=== PATIENT | female | born 1945 | race American Indian/Alaskan Native ===

== ENCOUNTER 2017-06-02 08:55 | Observation (INO) | payer MEDICARE, OTHER ==
--- NOTE | 2017-06-02 09:33 | ED PDOC ---
Arrival/HPI - General Chief Complaint: Abdominal Pain Time Seen by Provider: 06/02/17 09:17 Historian: Patient - History of Present Illness Narrative History of Present Illness (Text): 06/02/17 09:27 71yo female with PMhx of Diabetes, hypothyroid, hypertension, hyperlipdemia present with complaint of severe right flank pain with associated nausea x 4days. Pain is not relieved/exacerbated by anything. She did not take any medication for the pain. States she was 3weeks ago, when she saw her Urologist that she have urinary tract infection, but wasn't given any medication. She report history of kidney stones in 2008 and had Lithotripsy. She still sees the Urologist and have another appointment to follow up on her test next week. Denies vomiting, diarrhea, fever, chills, back pain, melena, hematemesis, chest pain, SOB, any other complaint. Past Medical History - Provider Review Nursing Documentation Reviewed: Yes - Cardiac Hx Cardiac Disorders: Yes Hx Hypertension: Yes - Pulmonary Hx Respiratory Disorders: No - Neurological Hx Neurological Disorder: No - HEENT Hx HEENT Disorder: No - Renal Hx Renal Disorder: Yes Hx Kidney Stones: Yes - Endocrine/Metabolic Hx Endocrine Disorders: Yes Hx Diabetes Mellitus Type 2: Yes Hx Hypothyroidism: Yes - Hematological/Oncological Hx Blood Disorders: No - Integumentary Hx Dermatological Disorder: No - Musculoskeletal/Rheumatological Hx Musculoskeletal Disorders: No - Gastrointestinal Hx Gastrointestinal Disorders: No - Genitourinary/Gynecological Hx Genitourinary Disorders: Yes Hx Urinary Tract Infection: Yes - Psychiatric Hx Psychophysiologic Disorder: No Hx Substance Use: No - Surgical History Hx Appendectomy: Yes - Anesthesia Hx Anesthesia Reactions: No Hx Malignant Hyperthermia: No - Suicidal Assessment Feels Threatened In Home Enviroment: No Family/Social History - Physician Review Nursing Documentation Reviewed: Yes Family/Social History: Unknown Family HX Smoking Status: Former Smoker Hx Alcohol Use: No Hx Substance Use: No Allergies/Home Meds Allergies/Adverse Reactions: Allergies No Known Allergies Allergy (Verified 06/02/17 09:08) Home Medications: Home Meds Medication Instructions Recorded Confirmed Glimepiride [Glimepiride] 2 mg PO DAILY 06/20/14 06/02/17 Levothyroxine Sodium [Synthroid] 50 mcg PO DAILY 06/20/14 06/20/14 Lisinopril 20 mg PO DAILY 06/20/14 06/02/17 Simvastatin 40 mg PO HS 06/20/14 06/02/17 Sitagliptin Phosphate [Januvia] 100 mg PO DAILY 06/20/14 06/02/17 amLODIPine [Norvasc] 5 mg PO DAILY 06/20/14 06/02/17 Review of Systems - Physician Review All systems were reviewed & negative as marked: Yes - Review of Systems Constitutional: Normal Eyes: Normal ENT: Normal Respiratory: Normal Cardiovascular: Normal Gastrointestinal: Abdominal Pain (right flank pain). absent: Constipation, Diarrhea, Nausea, Vomiting, Hematochezia, Hematemesis, Anorexia Genitourinary Female: Normal Musculoskeletal: Normal Skin: Normal Neurological: Normal Endocrine: Normal Hemo/Lymphatic: Normal Psychiatric: Normal Physical Exam Vital Signs Reviewed: Yes Vital Signs Temp Pulse Resp BP Pulse Ox 06/02/17 11:37 86 18 158/64 H 98 06/02/17 09:14 99.1 F 98 H 17 162/69 H 98 Temperature: Afebrile Blood Pressure: Normal Pulse: Regular Respiratory Rate: Normal Appearance: Positive for: Well-Appearing, Non-Toxic, Comfortable Pain Distress: None Mental Status: Positive for: Alert and Oriented X 3 - Systems Exam Head: Present: Atraumatic, Normocephalic Pupils: Present: PERRL Extroacular Muscles: Present: EOMI Conjunctiva: Present: Normal Mouth: Present: Moist Mucous Membranes Neck: Present: Normal Range of Motion Respiratory/Chest: Present: Clear to Auscultation, Good Air Exchange. No: Respiratory Distress, Accessory Muscle Use Cardiovascular: Present: Regular Rate and Rhythm, Normal S1, S2. No: Murmurs Abdomen: Present: Tenderness (Right flank tenderness), Normal Bowel Sounds, Other (Soft). No: Distention, Peritoneal Signs, Rebound, Guarding, McBurney's Point Tender, Rovsing's Sign Present Back: Present: Normal Inspection Upper Extremity: Present: Normal Inspection. No: Cyanosis, Edema Lower Extremity: Present: Normal Inspection. No: Edema Neurological: Present: GCS=15, CN II-XII Intact, Speech Normal Skin: Present: Warm, Dry, Normal Color. No: Rashes Psychiatric: Present: Alert, Oriented x 3, Normal Insight, Normal Concentration Medical Decision Making ED Course and Treatment: 06/02/17 11:45 Pt in ED for staed history. she have mild leukocytosis. Potassium was repleted. Her pain was controlled in ED with fluid and medication Abdominal/Pelvic CT IMPRESSION: 4 x 7 mm right proximal ureteral stone with moderate hydronephrosis Cipro was ordered Pt with multiple co morbidities, leukocytosis and hydronephrosis will be admitted. Case was DW Dr. Archuleta while he was in ED he accepted pt to his service and saw pt by the bedside. Pt sees Dr. Linda lam and he was called and consulted. - Lab Interpretations Lab Results: 06/02/17 09:30 06/02/17 09:30 Lab Results 06/02/17 10:00: Urine Color Straw, Urine Appearance Sl cloudy, Urine pH 8.5, Ur Specific Howe 1.015, Urine Protein Negative, Urine Glucose (UA) Negative, Urine Ketones Negative, Urine Blood Trace-intact H, Urine Nitrate Negative, Urine Bilirubin Negative, Urine Urobilinogen 0.2, Ur Leukocyte Esterase Negative , Urine RBC 0 - 2, Urine WBC 0 - 2, Ur Epithelial Cells 0 - 2, Amorphous Sediment Many, Urine Bacteria Few 06/02/17 09:30: Sodium 143, Potassium 3.3 L, Chloride 100, Carbon Dioxide 32, Anion Gap 15, BUN 11, Creatinine 1.2, Est GFR ( Amer) 54, Est GFR (Non- Af Amer) 44, Random Glucose 168 H, Calcium 10.1, Total Bilirubin 0.6, AST 28, ALT 31, Alkaline Phosphatase 85, Total Protein 8.4 H, Albumin 4.6, Globulin 3.8 , Albumin/Globulin Ratio 1.2 06/02/17 09:30: PT 12.5, INR 1.09 H, APTT 30.9 06/02/17 09:30: WBC 11.6 H, RBC 4.78, Hgb 13.7, Hct 42.0, MCV 87.9, MCH 28.7, MCHC 32.6, RDW 15.1 H, Plt Count 218, MPV 11.8 H, Gran % 79.3 H, Lymph % (Auto) 10.7 L, [place] % (Auto) 9.0 H, Eos % (Auto) 0.6 L, Baso % (Auto) 0.4, Gran # 9.17 H, Lymph # (Auto) 1.2, [place] # (Auto) 1.0 H, Eos # (Auto) 0.1, Baso # (Auto) 0.05 - RAD Interpretation Radiology Orders: 06/02/17 09:23 ABD & PELVIS W/O PO OR IV CONT [CT] Stat - Medication Orders Current Medication Orders: Amlodipine Besylate (Norvasc) 5 mg PO DAILY RAHEEM Atorvastatin Calcium (Lipitor) 20 mg PO HS RAHEEM Glimepiride (Amaryl) 2 mg PO DAILY RAHEEM Ciprofloxacin (Cipro 400mg/200ml Dsw) 400 mg in 200 mls @ 133.3 mls/hr IVPB STAT STA PRN Reason: Protocol Stop: 06/02/17 12:35 Last Admin: 06/02/17 11:11 Dose: 133.3 mls/hr eMAR Start Stop Document 06/02/17 11:11 SE (Rec: 06/02/17 11:11 SE [id number]) Intravenous Solution Start Date 06/02/17 Start Time 11:11 Ciprofloxacin (Cipro 400mg/200ml Dsw) 400 mg in 200 mls @ 133.3 mls/hr IVPB Q12 RAHEEM PRN Reason: Protocol Stop: 06/02/17 23:31 Sodium Chloride (Sodium Chloride 0.45%) 1,000 mls @ 60 mls/hr IV .[id number] RAHEEM Insulin Human Regular (Humulin R Med) 0 units SC ACHS RAHEEM PRN Reason: Protocol Ketorolac Tromethamine (Toradol) 30 mg IVP Q8H PRN PRN Reason: Pain, moderate (4-7) Levothyroxine Sodium (Synthroid) 50 mcg PO DAILY RAHEEM Lisinopril (Zestril) 20 mg PO DAILY RAHEEM Ondansetron HCl (Zofran Inj) 4 mg IVP Q6H PRN PRN Reason: Nausea/Vomiting Sitagliptin Phosphate (Januvia) 100 mg PO DAILY RAHEEM Discontinued Medications Famotidine (Pepcid) 20 mg IVP STAT STA Stop: 06/02/17 09:26 Last Admin: 06/02/17 09:41 Dose: 20 mg IVP Administration Document 06/02/17 09:41 SE (Rec: 06/02/17 09:41 SE [id number]) Charges for Administration # of IVP Administrations 1 Sodium Chloride (Sodium Chloride 0.9%) 1,000 mls @ 999 mls/hr IV .Q1H1M STA Stop: 06/02/17 10:36 Last Admin: 06/02/17 09:41 Dose: 999 mls/hr eMAR Start Stop Document 06/02/17 09:41 SE (Rec: 06/02/17 09:41 SE [id number]) Intravenous Solution Start Date 06/02/17 Start Time 09:41 Ketorolac Tromethamine (Toradol) 30 mg IVP STAT STA Stop: 06/02/17 09:25 Last Admin: 06/02/17 09:41 Dose: 30 mg MAR Pain Assessment Document 06/02/17 09:41 SE (Rec: 06/02/17 09:41 [id number] Pain Reassessment Is this a pain reassessment? No Sleep Is patient sleeping during reassessment? No Presence of Pain Presence of Pain Yes Pain Scale Used Pain Scale Used Numeric IVP Administration Document 06/02/17 09:41 SE (Rec: 06/02/17 09:41 [id number] Charges for Administration # of IVP Administrations 1 Ondansetron HCl (Zofran Inj) 4 mg IVP STAT STA Stop: 06/02/17 09:26 Last Admin: 06/02/17 09:41 Dose: 4 mg IVP Administration Document 06/02/17 09:41 SE (Rec: 06/02/17 09:41 [id number] Charges for Administration # of IVP Administrations 1 Potassium Chloride (K-Dur 20 Meq Er Tab) 40 meq PO STAT STA Stop: 06/02/17 11:07 Last Admin: 06/02/17 11:11 Dose: 40 meq Disposition/Present on Arrival - Present on Arrival Any Indicators Present on Arrival: No History of DVT/PE: No History of Uncontrolled Diabetes: No Urinary Catheter: No History of Decub. Ulcer: No History Surgical Site Infection Following: None - Disposition Have Diagnosis and Disposition been Completed?: Yes Diagnosis: Ureter colic Disposition: HOSPITALIZED Disposition Time: 11:15 Condition: FAIR
[2017-06-02] MEDS ORDERED: Sodium Chloride 0.9% 1,000 ML IV STA (09:36)
[2017-06-02 10:05] LABS: BASO # 0.05 K/mm3 (0.0-2.0); BASO % 0.4 % (0.0-3.0); EOS # 0.1 (0.0-0.7); EOS % 0.6 % (1.5-5.0); GRAN # 9.17 (1.4-6.5); GRAN % 79.3 % (50.0-68.0); HEMOGLOBIN 13.7 g/dL (12.0-16.0); LYMPH # 1.2 (1.2-3.4); LYMPH % 10.7 % (22.0-35.0); MEAN CELL VOLUME 87.9 fl (80.0-105.0); MEAN CORPUSCULAR HEMOGLOBIN 28.7 pg (25.0-35.0); MEAN CORPUSCULAR HGB CONC 32.6 g/dl (31.0-37.0); MEAN PLATELET VOLUME 11.8 fl (7.0-11.0); RBC 4.78 10^6/uL (3.5-6.1); RED CELL DISTRIBUTION WIDTH 15.1 % (11.5-14.5); WHITE BLOOD COUNT 11.6 10^3/ul (4.5-11.0)
[2017-06-02 10:12] LABS: INR 1.09 (0.93-1.08); PARTIAL THROMBOPLASTIN TIME 30.9 Seconds (25.1-36.5); PROTHROMBIN TIME 12.5 SECONDS (9.4-12.5)
[2017-06-02 10:20] LABS: PH,URINE 8.5 (4.7-8.0); URINE APPEARANCE SL CLOUDY (CLEAR); URINE BILIRUBIN NEGATIVE (NEGATIVE); URINE BLOOD TRACE-INTACT (NEGATIVE); URINE COLOR STRAW (YELLOW); URINE GLUCOSE (UA) NEGATIVE (NEGATIVE); URINE LEUKOCYTE ESTERASE NEGATIVE Leu/uL (NEGATIVE); URINE NITRATE NEGATIVE (NEGATIVE); URINE PROTEIN NEGATIVE mg/dL (<30 mg/dL); URINE UROBILINOGEN 0.2 E.U./dL (<1 E.U./dL)
[2017-06-02 10:26] LABS: ALB/GLOB RATIO 1.2 (1.1-1.8); ALBUMIN 4.6 g/dL (3.0-4.8); CALCIUM 10.1 mg/dL (8.4-10.5)
[2017-06-02 10:27] LABS: URINE AMORPHOUS SEDIMENT MANY; URINE BACTERIA FEW (NEG); URINE EPITHELIAL CELLS 0 - 2 /hpf (0-5); URINE RBC 0 - 2 /hpf (0-2); URINE WBC 0 - 2 /hpf (0-6)
--- NOTE | 2017-06-02 10:35 | CT ---
PROCEDURE: CT Abdomen and Pelvis without intravenous contrast HISTORY: Right flank pain COMPARISON: None. TECHNIQUE: Without. Contrast Dose: Radiation dose: Total exam DLP = 463 mGy-cm. This CT exam was performed using one or more of the following dose reduction techniques: Automated exposure control, adjustment of the mA and/or kV according to patient size, and/or use of iterative reconstruction technique. FINDINGS: LOWER THORAX: Unremarkable. LIVER: Unremarkable. No gross lesion or ductal dilatation. GALLBLADDER AND BILE DUCTS: Unremarkable. PANCREAS: Unremarkable. No gross lesion or ductal dilatation. SPLEEN: Unremarkable. ADRENALS: Unremarkable. No mass. KIDNEYS AND URETERS: There is a 4 x 7 mm stone in the right proximal ureter with a moderate degree of hydronephrosis. VASCULATURE: Unremarkable. No aortic aneurysm. BOWEL: Unremarkable. No obstruction. No gross mural thickening. APPENDIX: Unremarkable. Normal appendix. PERITONEUM: Unremarkable. No free fluid. No free air. LYMPH NODES: Unremarkable. No enlarged lymph nodes. BLADDER: Unremarkable. REPRODUCTIVE: Multiple calcified fibroids BONES: No acute fracture. OTHER FINDINGS: None. IMPRESSION: 4 x 7 mm right proximal ureteral stone with moderate hydronephrosis
[2017-06-02] MEDS ORDERED: Ciprofloxacin 400mg/200ml D5W 400 MG/200 ML BAG IVPB STA (11:05)
[2017-06-02] MEDS ORDERED: Potassium Chloride 20 mEq ER Tab PO STA (11:06)
[2017-06-02] MEDS ORDERED: Sodium Chloride 0.45% 1,000 ML IV SCH (11:45)
--- NOTE | 2017-06-02 12:27 | RAD ---
HISTORY: admission COMPARISON: No prior. FINDINGS: LUNGS: No active pulmonary disease. PLEURA: No significant pleural effusion identified, no pneumothorax apparent. CARDIOVASCULAR: Normal. OSSEOUS STRUCTURES: No significant abnormalities. VISUALIZED UPPER ABDOMEN: Normal. OTHER FINDINGS: None. IMPRESSION: No active disease.
[2017-06-02 13:30] VITALS: BMI 25.1
--- NOTE | 2017-06-02 13:30 | RAD ---
HISTORY: Ureteral colic COMPARISON: No prior. FINDINGS: BOWEL: Normal. No obstruction. No free air. BONES: Normal. OTHER FINDINGS: None. IMPRESSION: There is a thin linear calcifications on the right side adjacent to the L4 vertebral body. This may correspond to the stone seen on CT
[2017-06-02] MEDS ORDERED: Pneumococcal 23-Valent Vaccine IM ONE (13:31)
[2017-06-02] MEDS ORDERED: Influenza Vaccine 60 mcg/0.5 mL SYR (4YR UP) IM ONE (13:31)
--- NOTE | 2017-06-02 15:33 | PCM.URO ---
Urology Progress Note - Objective Lab Studies: Reviewed (pt for cystoscopy tomorrow 06/03) Intake & Output: Intake & Output 06/01/17 06/02/17 06/02/17 18:59 06:59 18:59 Weight 142 lb Other: Voiding Method Toilet Vital Signs: Vital Signs - 24 hr 06/02/17 06/02/17 11:37 13:03 Temperature 99.1 F Pulse Rate 86 86 Respiratory 18 18 Rate Blood Pressure 158/64 H 158/64 H O2 Sat by Pulse 98 Oximetry
--- NOTE | 2017-06-02 19:36 | HP ---
HISTORY OF PRESENT ILLNESS: I was called down to the emergency room to see Emily. She is being admitted for a kidney stone on the right side. She is having severe right abdominal pain. She is having nauseousness and not feeling well for 4 days. She is a 71-year-old female who complains of right flank pain, nausea, and vomiting for 4 days, not exacerbated by anything. She states 3 weeks ago she saw the urologist for the urinary tract infection, was given medication. She had a kidney stone in 2008, had lithotripsy. PAST MEDICAL HISTORY: She also has a past medical history of diabetes, hypothyroid, hypertension, high cholesterol, kidney stones, appendectomy in the past. FAMILY HISTORY: Unknown. SOCIAL HISTORY: Former smoker. No alcohol. No drugs. ALLERGIES: NO KNOWN DRUG ALLERGIES. MEDICATIONS: She is on glimepiride, Synthroid, lisinopril, simvastatin, Januvia, and Norvasc. REVIEW OF SYSTEMS: No changes in vision. No change in hearing. No sore throat. No chest pain or palpitations. No shortness of breath or cough. She has abdominal pain, right flank pain. No problems urinating. No legs or extremities or back pain. No nervousness or tremors. No anxiety or depression. PHYSICAL EXAMINATION: GENERAL: She is well appearing, alert, oriented x3, in no acute distress. VITAL SIGNS: She has a 99.1 temperature, 98 pulse, 17 respiratory rate, 162/69 blood pressure, 98% O2 sat on room air. HEENT: Head is atraumatic, normocephalic. Extraocular muscles are intact. Pupils are equal and reactive to light and accommodation. Throat is moist. NECK: Supple. HEART: Regular rate. Normal S1, S2. LUNGS: Decreased breath sounds. Clear to auscultation. No wheezes or rhonchi, no rales. ABDOMEN: She has right flank pain. Tenderness is better now after the medication she was given. No abdominal pain. No guarding. No rebound. Positive bowel sounds. EXTREMITIES: No edema. NEUROLOGIC: GCS is 15. Cranial nerves II through XII grossly intact. Alert, oriented x3. SKIN: Warm and dry. No apparent rashes or ulcers. LYMPHATIC: Thyroid midline. No palpable appreciable lymphadenopathy. DIAGNOSTIC DATA: CAT scan of the abdomen and pelvis showed a right-sided kidney stone, 4 x 7 mm with moderate hydronephrosis. She has a 143 sodium; potassium 3.3, potassium was replaced; BUN 11; creatinine 1.2; GFR is 44; sugar is 168. She will be on insulin coverage. She has a calcium of 10.1, total bilirubin is 0.6, AST is 28, ALT is 31, alkaline phosphatase 85, total protein is 8.4. White count 7.6, hemoglobin 13.7, hematocrit 42, platelets are 218. INR is 1.09. The urine was with many amorphous sediment, trace blood. She will have a consult with Dr. Arora, urologist of IV fluids. Put back on medications, Zofran and insulin, and I will keep an eye on her kidney stone and her pain. She will have Toradol for pain. Tony Archuleta DO
[2017-06-02] MEDS ORDERED: Ciprofloxacin 400mg/200ml D5W 400 MG/200 ML BAG IVPB SCH (22:00)
[2017-06-02] MEDS ORDERED: cefTRIAXone 1 GM/100 ML BAG IVPB SCH (22:00)
[2017-06-02] MEDS: Insulin Reg-MEDIUM-Coverage SC SCH (22:43)
[2017-06-03 07:39] LABS: MEAN CORPUSCULAR HEMOGLOBIN 27.9 pg (25.0-35.0); MEAN CORPUSCULAR HGB CONC 31.7 g/dl (31.0-37.0); MEAN PLATELET VOLUME 11.1 fl (7.0-11.0); RBC 4.66 10^6/uL (3.5-6.1); RED CELL DISTRIBUTION WIDTH 15.3 % (11.5-14.5); WHITE BLOOD COUNT 6.1 10^3/ul (4.5-11.0)
[2017-06-03 07:51] LABS: ALB/GLOB RATIO 1.2 (1.1-1.8); ALBUMIN 4.1 g/dL (3.0-4.8); ALT/SGPT 31 U/L (7-56); AST/SGOT 24 U/L (14-36); BLOOD UREA NITROGEN 12 mg/dL (7-21); CALCIUM 9.8 mg/dL (8.4-10.5); GFR AFRICAN-AMERICAN > 60; GFR NON-AFRICAN AMERICAN 55
--- NOTE | 2017-06-03 08:27 | CARD ---
APPROVED REPORT EKG Measurement Heart [id number] <Conclusion> Normal sinus rhythm Nonspecific ST abnormality
[2017-06-03] MEDS ORDERED: Lidocaine 2% Jelly (Uro-Jet) ONE (08:29)
[2017-06-03] MEDS ORDERED: Iohexol 240 (50 ml) ONE (08:29)
[2017-06-03] MEDS ORDERED: Propofol 10 mg/ml Inj (20 ML) ONE (09:02)
[2017-06-03] MEDS ORDERED: Midazolam 2 MG/2 ML VIAL ONE (09:02)
[2017-06-03] MEDS ORDERED: cefTRIAXone (Rocephin) 1 gm Inj ONE (09:14)
[2017-06-03] MEDS ORDERED: Lactated Ringer's 1,000 ML IV SCH (10:00)
[2017-06-03] MEDS ORDERED: Levothyroxine 50 MCG TAB PO SCH (10:00)
[2017-06-03 10:08] VITALS: RESP 14; TEMP 98
[2017-06-03 10:21] VITALS: O2SAT 99
--- NOTE | 2017-06-03 10:24 | CP.PCM.CON ---
Past Patient History - Past Social History Smoking Status: Former Smoker - CARDIAC Hx Cardiac Disorders: Yes Hx Hypercholesterolemia: Yes Hx Hypertension: Yes - PULMONARY Hx Respiratory Disorders: Yes (USED TO SMOKE CIGARETTES) - NEUROLOGICAL Hx Neurological Disorder: No - HEENT Hx HEENT Problems: No - RENAL Hx Chronic Kidney Disease: Yes Hx Kidney Stones: Yes (2009 HAD LITHOTRYPSY) - ENDOCRINE/METABOLIC Hx Endocrine Disorders: Yes Hx Diabetes Mellitus Type 2: Yes Hx Hypothyroidism: Yes - HEMATOLOGICAL/ONCOLOGICAL Hx Blood Transfusions: No - INTEGUMENTARY Hx Dermatological Problems: No - MUSCULOSKELETAL/RHEUMATOLOGICAL Hx Musculoskeletal Disorders: No Hx Falls: No - GASTROINTESTINAL Hx Gastrointestinal Disorders: Yes (APPENDECTOMY) - GENITOURINARY/GYNECOLOGICAL Hx Genitourinary Disorders: Yes Hx Urinary Tract Infection: Yes - PSYCHIATRIC Hx Psychophysiologic Disorder: No Hx Substance Use: No - SURGICAL HISTORY Hx Surgeries: Yes - ANESTHESIA Hx Anesthesia Reactions: No Hx Malignant Hyperthermia: No Meds Allergies/Adverse Reactions: Allergies Allergy/AdvReac Type Severity Reaction Status Date / Time No Known Allergies Allergy Verified 06/02/17 13:08 - Medications Medications: Current Medications Amlodipine Besylate (Norvasc) 5 mg PO DAILY [facility] Atorvastatin Calcium (Lipitor) 20 mg PO HS [facility] Last Admin: 06/02/17 22:44 Dose: 20 mg Fentanyl (Fentanyl) 25 mcg IV Q5M PRN PRN Reason: Pain, moderate (4-7) Glimepiride (Amaryl) 2 mg PO DAILY [facility] Sodium Chloride (Sodium Chloride 0.45%) 1,000 mls @ 60 mls/hr IV .[id number] [facility] Ceftriaxone Sodium (Rocephin 1 Gram Ivpb) 1 gm in 100 mls @ 100 mls/hr IVPB 2200 [facility] Last Admin: 06/02/17 22:44 Dose: 100 mls/hr Lactated Ringer's (Lactated Ringer's) 1,000 mls @ 75 mls/hr IV .[id number] [facility] Stop: 06/03/17 12:01 Insulin Human Regular (Humulin R Med) 0 units SC ACHS [facility] PRN Reason: Protocol Last Admin: 06/02/17 22:43 Dose: Not Given Ketorolac Tromethamine (Toradol) 15 mg IVP Q8H PRN PRN Reason: Pain, moderate (4-7) Stop: 06/07/17 11:38 Levothyroxine Sodium (Synthroid) 50 mcg PO DAILY [facility] Lisinopril (Zestril) 20 mg PO DAILY [facility] Ondansetron HCl (Zofran Inj) 4 mg IVP Q6H PRN PRN Reason: Nausea/Vomiting Ondansetron HCl (Zofran Inj) 4 mg IVP ONCE PRN PRN Reason: Nausea/Vomiting Sitagliptin Phosphate (Januvia) 100 mg PO DAILY RAHEEM Results - Vital Signs Recent Vital Signs: Last Vital Signs Temp 98 F 06/03/17 09:47 Pulse 59 L 06/03/17 10:17 Resp 14 06/03/17 10:17 BP 145/70 06/03/17 10:17 Pulse Ox 99 06/03/17 10:17 - Labs Result Diagrams: 06/03/17 07:00 06/03/17 07:00 Labs: Laboratory Results - last 24 hr 06/02/17 06/02/17 06/03/17 16:09 21:32 07:00 WBC 6.1 D RBC 4.66 Hgb 13.0 Hct 41.0 MCV 88.0 MCH 27.9 MCHC 31.7 RDW 15.3 H Plt Count 216 MPV 11.1 H Sodium Potassium Chloride Carbon Dioxide Anion Gap BUN Creatinine Est GFR ( Amer) Est GFR (Non-Af Amer) POC Glucose (mg/dL) 101 158 H Random Glucose Calcium Total Bilirubin AST ALT Alkaline Phosphatase Total Protein Albumin Globulin Albumin/Globulin Ratio 06/03/17 06/03/17 07:00 07:18 WBC RBC Hgb Hct MCV MCH MCHC RDW Plt Count MPV Sodium 144 Potassium 3.7 Chloride 104 Carbon Dioxide 27 Anion Gap 16 BUN 12 Creatinine 1.0 Est GFR ( Amer) > 60 Est GFR (Non-Af Amer) 55 POC Glucose (mg/dL) 149 H Random Glucose 156 H Calcium 9.8 Total Bilirubin 0.8 AST 24 ALT 31 Alkaline Phosphatase 77 Total Protein 7.7 Albumin 4.1 Globulin 3.5 Albumin/Globulin Ratio 1.2 Assessment & Plan - Assessment and Plan (Free Text) Assessment: IMP: R renal colic R ureteral calculus DM Hypertension Hypothyroidism full note t/f YS - Date & Time Date: 06/03/17 Time: 08:50
--- NOTE | 2017-06-03 10:26 | PCM.SURG1 ---
Surgeon's Initial Post Op Note - Surgeon's Notes Surgeon: Uyen Arora Valve Mechanic: none Type of Anesthesia: General LMA Pre-Operative Diagnosis: R renal colic. R upper ureteral calculus Operative Findings: same. R hydronephrosis Post-Operative Diagnosis: same Operation Performed: cyso. R rtg pyelogram. Insertion of R ureteral stent. EUA Specimen/Specimens Removed: urine Estimated Blood Loss: EBL {In ML}: 0 Blood Products Given: N/A Drains Used: No Drains Post-Op Condition: Good Date of Surgery/Procedure: 06/03/17 Time of Surgery/Procedure: 09:50
--- NOTE | 2017-06-03 10:37 | RAD ---
PROCEDURE: Retrograde pyelogram HISTORY: RIGHT RENAL COLIC UROLITHIASIS COMPARISON: TECHNIQUE: Fluoroscopy was provided in the operating room. 31.9 seconds of fluoro time. Five images were submitted FINDINGS: There is placement of a right ureteral stent IMPRESSION: As above
[2017-06-03] MEDS: Insulin Reg-MEDIUM-Coverage SC SCH ×2 (11:43→14:26)
[2017-06-03 11:47] VITALS: BP 123/69; PULSE 65
--- NOTE | 2017-06-03 14:20 | PN ---
DATE: SUBJECTIVE: I saw her resting comfortably in bed. She is telling me she is going for a cystoscopy today with Dr. Arora. She has very little pain. She is showing kidney stones in the x-ray. PHYSICAL EXAMINATION: VITAL SIGNS: 98.7 temp, 76 pulse, 132/64 blood pressure, 18 respiratory rate, 97% O2 sat on room air. HEENT: Her head is atraumatic, normocephalic. HEART: Regular rate. LUNGS: Decreased breath sounds, but clear. ABDOMEN: Soft. EXTREMITIES: No edema. MEDICATIONS: She is on Amaryl, insulin, Januvia, Lipitor, Norvasc, Rocephin, IV fluids, Synthroid, Toradol, Zestril, Zofran. LABORATORY DATA: She has a 6.1 white count, better; 13 hemoglobin; 41 hematocrit with 216 platelets. She has a 144 sodium, potassium 3.7, BUN 12, creatinine 1, GFR is greater than 60, sugar is 156, calcium is 9.8, total bili is 0.8, AST is 24, ALT is 31, alk phos is 77, total protein 7.7. Urine had many amorphous segments. ASSESSMENT AND PLAN: She has kidney stones for cystoscopy today and hoping possibly she could be discharged later or possibly tomorrow depending on what the urologist has to say. Tony Archuleta DO MTDD
--- NOTE | 2017-06-03 18:31 | CON ---
DATE: 06/02/2017 UROLOGY CONSULTATION REQUESTING PHYSICIAN: Tony Archuleta DO. PRIMARY CARE DOCTOR: Jyoti Holt M.D. (I do not believe she is a staff of this hospital). REASON FOR CONSULTATION: Severe renal colic. HISTORY OF PRESENT ILLNESS: Ms. Emily Steinberg is a very pleasant lady, she is 71-year-old, who is having history of kidney stone disease. She is now admitted with severe right-sided renal colic with obstructive stone. Urology was consulted for further recommendations. PAST MEDICAL AND SURGICAL HISTORY: Listed on chart. Again as mentioned above the patient of Dr. Jyoti Holt. In this hospital, she is under the care of Dr. Tony Archuleta. REVIEW OF SYSTEMS: As listed above, otherwise essentially noncontributory. MEDICATIONS: See the chart. ALLERGIES: . PHYSICAL EXAMINATION: GENERAL: Well-nourished female. She is currently resting reasonably comfortably. VITAL SIGNS: Within normal limits. PELVIC: Deferred until cystoscopy, see the plan listed below. The remainder of the physical exam is within relatively normal limits. LABORATORY DATA: BUN, creatinine, CBC, SMA-7 are all listed below on the chart and in the computer. DIAGNOSES: 1. Urolithiasis. 2. Hematuria. 3. Renal colic. 4. Hydronephrosis and obstructing stone. PLAN: Urology plan as follows, for now we are going to provide the patient analgesics. The patient will go to the operating room for a cystoscopy, retrograde pyelogram, and stent insertion, and then further plans will follow. I explained this to the patient at great length. I do pictures just for the completion and for thoroughness. I am Dr. Agustín Arora. The patient is patient of Dr. Jackie Arora, who will be planning for the procedure tomorrow. I explained this to the patient in detail. As the plan is for tomorrow morning, I do the patient pictures and explained our further plans. Thank you for the Urology consultation. Agustín Arora MD [facility] # [id number]
--- NOTE | 2017-06-05 08:29 | CON ---
DATE: UROLOGY CONSULTATION Urology consultation is requested by Tony Archuleta DO Urology consultation filled by Dr. Jackie Arora. REASON FOR CONSULTATION: Right renal colic. HISTORY OF PRESENT ILLNESS: Patient is a 71-year-old female admitted with right flank pain. Patient reports an approximately 5 to 6 day history of right flank pain. Pain has been intermittent. Pain became more severe today. Patient presented to the emergency room where she required parenteral analgesics. The patient reports the pain involves the right flank. Patient had periods of nausea without vomiting. No fever or rigors. No hematuria. Pain radiated to the right lower quadrant. The patient had CT scan and abdominal x-ray performed. Patient was found to have a right ureteral calculus involving the lumbar area. Patient has history of previous urolithiasis. Patient has previously undergone extracorporeal shock wave lithotripsy. Further details as per review of the chart. LABORATORY DATA: Reviewed. X-ray is reviewed as well. MEDICATIONS: List is reviewed. PHYSICAL EXAMINATION GENERAL: Patient is a well-developed, well-nourished female. VITAL SIGNS: The patient is afebrile. Vital signs are stable. ABDOMEN: Soft, nondistended. There is no abdominal tenderness. There is [id number] right flank tenderness. IMPRESSION: A 71-year-old female with right renal colic. Recurrent urolithiasis. Right ureteral calculus with right hydronephrosis. RECOMMENDATION AND PLAN: Findings have been discussed with the patient. Options of therapy have discussed with the patient. In view of the persistent pain, the patient will undergo cystoscopy and stent insertion. The temporary nature of the stent is explained to the patient. Further therapy will require lithotripsy as well. Thank you for recommending the patient for Urology consultation. Jackie Arora MD cc: Tony Archuleta DO
--- NOTE | 2017-06-05 08:39 | OP ---
PROCEDURE DATE: 06/03/2017 PREOPERATIVE DIAGNOSES: 1. Right renal colic. 2. Right urethral calculus. POSTOPERATIVE DIAGNOSES: 1. Right renal colic. 2. Right urethral calculus. 3. Right hydronephrosis. PROCEDURES: 1. Cystoscopy. 2. Right retrograde pyelogram. 3. Insertion of right ureteral stent. 4. Exam under anesthesia. DESCRIPTION OF PROCEDURE: The procedure was performed under video endoscopic control as well as under fluoroscopic control with C-arm. Patient received perioperative antibiotics. Patient was placed in lithotomy position. Genitalia prepped and draped sterilely. Anesthesia was given by the anesthesiologist. A 22-Norwegian cystoscope sheath was introduced with the obturator. The urethra and bladder were inspected with a 30-degree lens. FINDINGS: The urethral caliber was noted to be normal. There was no bladder tumor. There was no bladder stone. There was mild bladder trabeculation. The ureteral orifices were normal in position and shape. A 0.035 inch guidewire was inserted into the right ureteral orifice. Guidewire was passed under fluoroscopic control. The stone was visualized on the gravure press set up operator film at the level of the lumbar ureter, at proximally at L3-L4. The guidewire advanced up to the level of the stone and was negotiated past the stone up to the kidney. An open-ended catheter was inserted over the guidewire. There was a brisk identified from the open-ended catheter. Urine was sent for bacteriologic examination. Iodinated contrast then was instilled via the open-ended catheter. There was noted to be moderate hydroureteronephrosis. A guidewire was reinserted. A 6-Norwegian Multilink stent was inserted over the guidewire. Proper stent position was confirmed with fluoroscopy and endoscopy. The guidewire was removed. The stent was left in place. The bladder was reinspected and confirmed the above findings. The bladder was then drained. Cystoscope and sheath were removed. Exam under anesthesia was performed. There was no abnormal pelvic mass fixation or induration. There was mild uterine enlargement. There were no adnexal mass or fixation. There was mild urethral hypermobility and mild cystocele. The patient tolerated the procedure without complication. Jackie Arora MD
--- NOTE | 2017-06-09 04:27 | DS ---
SUMMARY: She had her cystoscopy with Dr. Arora for the kidney stone. The stent was placed and she was okay for discharge. She was doing very well, so follow up on the outpatient with Dr. Arora. She had kidney stones, and with the stent placement, she did very well. Tony Archuleta DO
== END 2017-06-03 17:02 | disposition home or self-care (01) ==
LOC: ED 08:55 → ERH 11:28 → 5RSO 12:52
PROVIDERS: ADMIT Family Medicine; ATTEND Family Medicine
DX: N13.2 Hydronephrosis with renal and ureteral calculous obstruction (principal); N21.1 Calculus in urethra; N32.89 Other specified disorders of bladder; N81.10 Cystocele, unspecified; N36.41 Hypermobility of urethra; N85.2 Hypertrophy of uterus; I12.9 Hypertensive chronic kidney disease with stage 1 through stage 4 chronic kidney disease, or unspecified chronic kidney disease; N18.9 Chronic kidney disease, unspecified; E11.22 Type 2 diabetes mellitus with diabetic chronic kidney disease; E78.00 Pure hypercholesterolemia, unspecified; E03.9 Hypothyroidism, unspecified; Z87.440 Personal history of urinary (tract) infections; Z87.891 Personal history of nicotine dependence; Z79.84 Long term (current) use of oral hypoglycemic drugs
CPT/HCPCS: 36415; 52332; 71045; 74022; 74176; 74420; 80053; 81001; 82948; 85025; 85027; 85610; 85730; 87086; 93005; 96374; 96375; 99285; C1758; C1769; C2625; G0378; J0696; J0744; J1885; J2001; J2250; J2405; J2704; J3010; J7040; J7120; Q9966

== ENCOUNTER 2018-09-01 10:05 | Outpatient (CLI) | payer MEDICARE | END 2018-09-01 10:06 | disposition home or self-care (01) | LOC: RAD 10:05 ==